=== PATIENT | male | born 1960 | race Caucasian/White ===

== ENCOUNTER 2021-08-27 08:55 | Emergency (ER) | payer OTHER, SELFPAY ==
[2021-08-27] VITALS (17 sets, daily range): BP systolic 129–210; BP diastolic 88–136; PULSE 58–81; RESP 20; TEMP 36.9–37.1; O2SAT 92–98
--- NOTE | ~2021-08-27 | CT_ITS ---
EXAMINATION: CT brain wo con INDICATION: Headache COMPARISON: None TECHNIQUE: Standard unenhanced head CT. The dose-length product (DLP) was 681.00 mGy-cm. The mA was a djusted according to patient size. Iterative reconstruction technique was employed. FINDINGS: There is hypoattenuation in the right frontal lobe and right periventricular white matter w ith associated loss of ochoa-white differentiation. Subtle low attenuation is also seen in the left fr ontal lobe adjacent to the anterior horn of the lateral ventricle. There is no intracranial hemorrhag e or abnormal mass lesion. The ventricles are normal. There is no abnormal mass effect or midline reta ft. The basal cisterns are patent. The orbits are normal. There is a polyp or mucous retention cyst right maxillary sinus. IMPRESSION: 1. Areas of hypoattenuation in the frontal lobes suggestive of acute to subacute infarct. Reviewed, dictated and finalized at location A. IMPRESSION: 1. Areas of hypoattenuation in the frontal lobes suggestive of acute to subacut e infarct.
--- NOTE | 2021-08-27 09:02 | ECG_ITS ---
Measurements Intervals [place] Rate: 86 P: 17 IA: 184 QRS: -46 QRSD: 94 T: 4 QT: 367 QTc: 441 Interpretive Statements SINUS RHYTHM LEFT ANTERIOR FASCICULAR BLOCK [QRS AXIS <= -45, QR IN I, RS IN II] VOLTAGE CRITERIA FOR LVH [MEETS CRITERIA IN ONE OF: R(aVL), S(V1), R(V5), R(V5/V6)+S(V1)] NONSPECIFIC T-WAVE ABNORMALITY NO PREVIOUS ECG AVAILABLE FOR COMPARISON Electronically Signed On 08-27-2021 19:27:23 CDT by Rosa Melton M.D.
[2021-08-27 09:12] LABS: Basophils Absolute Auto 0.06 K/mm3 (0.00-0.10); Basophils Percent Auto 0.5 % (0.0-1.0); Eosinophils Absolute Auto 0.02 K/mm3 (0.02-0.50); Eosinophils Percent Auto 0.2 % (1.0-6.0); Hematocrit 55.9 % (40.0-54.0); Hemoglobin 19.7 g/dL (14.0-18.0); Immature Granulocyte Absolute 0.04 K/mm3 (0.00-0.00); Immature Granulocyte Percent A 0.3 % (0.0-0.0); Lymphocytes Absolute Auto 2.59 K/mm3 (1.10-4.50); Lymphocytes Percent Auto 21.6 % (18.0-42.0); Mean Corpuscular HGB Conc 35.2 g/dL (32.0-36.0); Mean Corpuscular Hemoglobin 30.3 pg (27.0-31.0); Mean Platelet Volume 11.9 fl (8.7-11.0); Monocytes Absolute Auto 0.97 K/mm3 (0.10-0.90); Monocytes Percent Auto 8.1 % (2.0-11.0); Neutrophils Absolute Auto 8.3 K/mm3 (1.7-7.2); Neutrophils Percent Auto 69.3 % (50.0-70.0); Platelet Count Result 121 K/mm3 (150-420); Red Cell Distribution Width 11.6 % (11.6-14.4)
[2021-08-27] MEDS: METOPROLOL TARTRATE INJ 5 MG/5 ML VIAL 2.5 MG IV PUSH ×3 (09:23→11:21)
[2021-08-27] MEDS: SODIUM CHLORIDE 0.9% IV 500 ML 999 ML IV CONT ×3 (09:24→15:52)
[2021-08-27 09:27] LABS: Glucose Point of Care 263 mg/dl (65-105)
[2021-08-27 09:28] LABS: Lactic Acid Reflex 2.6 mmol/L (0.4-2.0)
[2021-08-27 09:31] LABS: Alanine Aminotransferase 34 U/L (16-63); Albumin Level 3.7 g/dL (3.4-5.0); Alkaline Phosphatase 64 U/L (46-116); Anion Gap 9 mmol/L (8-16); Aspartate Amino Transferase 25 U/L (15-37); Bilirubin,Total 1.2 mg/dL (0.00-1.00); Blood Urea Nitrogen 21 mg/dL (7-18); Calcium 9.3 mg/dL (8.5-10.1); Carbon Dioxide 32 mmol/L (21-32); Chloride 95 mmol/L (98-108); Estimated Glomerular Filt Rate 51; Glucose 318 mg/dL (70-99); Osmolality Calculated 297 mOsm/kg (285-295); Potassium 3.4 mmol/L (3.5-5.1); Salicylate 1.1 mg/dL (2.8-20.0); Sodium 136 mmol/L (136-145); Thyroid Stimulating Hormone 2.12 uIU/mL (0.36-3.74); Total Protein 7.9 g/dL (6.4-8.2); Troponin I 46.2 ng/L (0.00-60.4)
[2021-08-27 09:32] LABS: Acetaminophen < 2 ug/mL (10-30); Ethanol < 3 mg/dL (0-6)
--- NOTE | 2021-08-27 10:00 | ED.NEUROSD ---
HPI - Neuro Symptoms/Deficit General Chief Complaint: Suspected CVA Stated Complaint: stroke symptoms Time Seen by Provider: 08/27/21 08:59 Source: patient, family and RN notes reviewed Mode of arrival: ambulatory Limitations: altered mental status History of Present Illness HPI Narrative: Severe MORRELL with vomiting x 28 hrs ago. Also pt has had difficulty understanding Onset (ago): day(s) (28) Last Observed Normal: 06:00 Timing confirmed by: spouse Location: altered and other (not following commands.) History of same: No Severity: moderate Relieving factors: none Exacerbating factors: none Context: gradual onset On Anticoagulants: No Associated symptoms: confusion, headaches and nausea/vomiting Treatments Prior to Arrival: none Related Data Home Medications Medication Instructions Recorded Confirmed No Home Medications 08/27/21 08/27/21 Allergies Allergy/AdvReac Type Severity Reaction Status Date / Time erythromycin base AdvReac Severe NAUSEA, Verified 03/15/20 14:56 SEVERE STOMACH PAIN Review of Systems Review of Systems: All systems reviewed & are unremarkable except as noted in HPI and below Constitutional: Constitutional: Reports no additional constitutional complaints Eyes: Eyes: Reports no additional eye complaints ENT: Reports system reviewed and no additional complaints, except as documented Cardiovascular: Cardiovascular: Reports no additional cardiovascular complaints Respiratory: Respiratory: Reports no additional respiratory complaints Gastrointestinal: Gastrointestinal: Reports no additional gastrointestinal complaints Musculoskeletal: Musculoskeletal: Reports no additional musculoskeletal complaints Integumentary/Breasts: Skin/Breast: Reports system reviewed and no additional complaints, except as docu Neurologic: Reports system reviewed and no additional complaints, except as documented Psychiatric: Psychiatric: Reports no additional psychiatric complaints Endocrine: Endocrine: Reports no additional endocrine complaints Hematologic/Lymphatic: Hematologic/Lymphatic: Reports no additional hematologic/lymphatic complaints Allergic/Immunologic: Allergic/Immunologic: Reports no additional allergic/immunologic complaints [facility] Past Medical History Medical History Polycythemia Stroke Type 2 diabetes mellitus without complications Family History Family History Mother Patient's mother is in good health Father Patient's father is in good health Sibling Patient's sister is in good health Social History Social History Smoking status: Never smoker Second hand tobacco smoke exposure: No Alcohol intake: current Exam Const: General: healthy appearing and no acute distress Nutritional Appearance: well nourished Orientation/consciousness: patient oriented x3 Limitations: no limitations HENMT: Head: normal to inspection Ears: external ears normal, TM's normal bilaterally and EAC's normal General nose exam: Normal external nose present and Normal nares present Face and sinus: normal facial exam and sinuses nontender Mouth: Yes Normal oral and palatal mucosa present and Yes moist mucous membranes Teeth and gingiva: dentition normal Throat: posterior oropharynx normal Eyes: Conjunctivae: conjunctivae normal Pupils: Equal, round and reactive pupils present EOM: EOMs intact bilaterally Neck: Neck: normal visual inspection, no lymphadenopathy and no meningeal signs Chest: Chest palpation & inspection: normal inspection of the chest Resp: Effort & Inspection: normal respiratory effort Auscultation: clear to auscultation bilaterally Cardio: Rate: regular rate Rhythm: regular rhythm GI: GI Palp: Yes Soft to palpation and No Tenderness to palpation present (GI) Auscultation: normal bowel so
[2021-08-27] MEDS: ONDANSETRON INJ 4 MG/2 ML VIAL IV PUSH ×2 (10:15→15:52)
[2021-08-27] MEDS: MORPHINE SULFATE (*CRX) 2 MG/ML INJ IV PUSH (10:19)
[2021-08-27 10:23] LABS: SARS-CoV-2 RNA PCR Negative (Negative)
[2021-08-27] MEDS: ASPIRIN 325 MG ENTERIC TABLET PO (10:38)
[2021-08-27 10:55] LABS: Add Urine Microscopic? YES; Appearance Urine Clear (Clear); Bilirubin Urine Negative (Negative); Blood Urine 2+ (Negative); Color Urine Yellow (Yellow); Glucose Urine UA 3+ (Negative); Ketones Urine Trace (Negative); Leukocyte Esterase Ur Negative (Negative); Nitrate Urine Negative (Negative); Protein Urine 3+ (Negative); Specific Grav Ur >= 1.030 (1.010-1.020); Urobilinogen Urine 0.2 mg/dL (0.2-1.0)
[2021-08-27 10:59] LABS: Bacteria Urine 1+ /hpf; Mucus Urine Few /lpf; Squamous Epithelial Cell Urine Rare /hpf (Few); WBC Urine None seen /hpf (0-3)
[2021-08-27 11:02] LABS: Amphetamine Screen Urine Negative (Negative); Barbiturate Screen Urine Negative (Negative); Benzodiazepines Screen Urine Negative (Negative); Cannabinoid Screen Urine Negative (Negative); Cocaine Screen Urine Negative (Negative); Methadone Screen Urine Negative (Negative); Opiate Screen Urine Positive (Negative); Phencyclidine Screen Urine Negative (Negative)
[2021-08-27 12:08] LABS: Reflex Lactic Acid Yes or No Add Lactic
[2021-08-27] MEDS: cloNIDine HCL 0.2 MG TABLET PO (12:42)
[2021-08-27] MEDS: carvediloL 12.5 MG TABLET 25 MG PO (14:53)
--- NOTE | 2021-08-27 15:41 | ECG_ITS ---
Measurements Intervals [place] Rate: 54 P: -4 SC: 190 QRS: -41 QRSD: 102 T: 187 QT: 542 QTc: 518 Interpretive Statements SINUS BRADYCARDIA LEFT AXIS DEVIATION [QRS AXIS < -30] LEFT VENTRICULAR HYPERTROPHY AND ST-T CHANGE COMPARED TO ECG 08/27/2021 09:19:57 SINUS BRADYCARDIA NOW PRESENT LEFT-AXIS DEVIATION NOW PRESENT LATERAL T-WAVE INVERSION IS NEW, COMPARED TO THE PRIOR TRACING, AND MAY REPRESENT ISCHEMIA Electronically Signed On 08-27-2021 19:28:28 CDT by Rosa Melton M.D.
[2021-08-27] MEDS: SODIUM CHLORIDE 0.9% IV 500 ML 999 ML (15:54)
--- NOTE | 2021-08-27 16:25 | PC.NURSE ---
1527 blood pressure drop to 88/67, hr 50. pt pale, diaphoretic, confusion, slurred speech, unable to write name as previously checked. dr red in room with pt. call to [facility] at 1530 , dr red spoke with dr ARTEAGA, will request icu bed placement due to change in condition. pt confused of who family members are. awaiting call back from neri. 1620 call from neri spoke with [facility], bed assignment received.
--- NOTE | 2021-08-27 16:34 | PC.NURSE ---
pt alert to daughter name who is standing at bedside, writing name more clearly but not back to normal. skin is pink and dry. Call to [facility] for transport. awaiting response.
--- NOTE | 2021-08-27 17:33 | PC.NURSE ---
1700 [facility] here, report to nicolas . pt loaded to ems cot, speech clear. alert and oriented to family members. able to move self to ems cot. denies pain, no nausea. no vomiting while in er.
== END 2021-08-27 17:10 | disposition short-term general hospital (02) ==
PROVIDERS: Emergency Provider Emergency Medicine; PCP Internal Medicine
DX: I63.89 Other cerebral infarction (principal); Z20.822 Contact with and (suspected) exposure to COVID-19; E11.9 Type 2 diabetes mellitus without complications
CPT/HCPCS: 36415; 70450; 80053; 80307; 81001; 82948; 83605; 84443; 84484; 85025; 93005; 96361; 96374; 96375; 96376; 99285; A9270; C9803; J2270; J2405; J7040; U0003; U0005

== ENCOUNTER 2021-09-11 09:53 | Outpatient (RCR) | payer OTHER, SELFPAY ==
--- NOTE | 2021-09-11 11:36 | OTOPEVAL ---
Thank you for referring Shad Juarez to [facility].? The patient is scheduled to be seen for therapy? ____x/week for ___ weeks. Please review, sign, date and return this plan of care AZALEA. I agree with and certify that the following plan of care is medically necessary. Referring Physician Date Admitting Provider: Attending Provider: Noel Dawkins DO Referring Provider: *OT Outpatient Evaluation Start: 09/11/21 08:58 Freq: Status: Active Protocol: Document 09/11/21 10:55 [facility] [place] (Rec: 09/11/21 11:36 [facility] [place] [id number]) Therapy Assessment Status Assessment Status Assessment Status Evaluation Outpatient Past Medical History Neurological History Hx Migraine Yes Cardiovascular History Hx Hypercholesterolemia Yes Hx Hypertension Yes Endocrine History Hx Diabetes Yes Evaluation Information Problem Onset 08/27/21 Cause CVA Subjective Information Patient transitions from ST Query Text:As Reported By Patient/ evaluation to OT. Patient Family reports that he had a CVA on and was in the hospital until 08/31/21. Patient reports that things are going well. Patient states that his biggest concern is his frustration with cognitive stuff, specifically using computers. Patient states that he is currently independent with all his self care and IADLs. Patient feels that his only concern at this time is his cognition and speech. 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
--- NOTE | 2021-09-11 13:17 | STOPEVAL ---
Addendum entered by ANITA Noyola 09/11/21 13:21: Frequency 1x/week for 10 sessions. Original Note: Thank you for referring Shad Juarez to [facility].? The patient is scheduled to be seen for therapy? ____x/week for ___ weeks. Please review, sign, date and return this plan of care AZALEA. I agree with and certify that the following plan of care is medically necessary. Referring Physician Date Admitting Provider: Attending Provider: Noel Dawkins DO Referring Provider: [facility] Outpatient Evaluation Start: 09/11/21 12:21 Freq: Status: Active Protocol: Document 09/11/21 10:00 [facility] (Rec: 09/11/21 12:59 [facility] [id number]) Therapy Assessment Status Assessment Status Assessment Status Evaluation Patient was referred for an ST evaluation due to new concerns regarding cognitive- communication deficits due to recent CVA. Outpatient Past Medical History Past Medical History Source of Past Medical History Patient,Family/Significant Other BP 204/105 during evaluation. Spoke with primary doctor to see patient soon in the office for potential changes in medication. Education with patient regarding symptoms to look out for and if noted to go to the ER immediately. Neurological History Hx Cerebrovascular Accident (CVA) Yes: 08-26-21 Hx Migraine Yes Cardiovascular History Hx Hypercholesterolemia Yes Hx Hypertension Yes Respiratory History Hx Respiratory Disorders No Significant History Gastrointestinal History Hx Gastrointestinal Disorders No Significant History Genitourinary History Hx Genitourinary Disorders No Significant History Musculoskeletal History Hx Musculoskeletal Disorders No Significant History Hematological History Hx Hematological Disorders No Significant History Endocrine History Hx Diabetes Yes HEENT History Hx HEENT Disorders No Significant History Integumentary History Hx Skin Disorders No Significant History Reproductive History Hx Reproductive Disorders No Significant History Psychosocial History Hx Psychiatric Disorders No Significant History Pain History History of Any Previous or Ongoing No Significant History Instance of Pain Anesthesia History Hx Anesthesia Reactions No Significant History Pain Assessment Timing of Pain Assessment Timing of Pain Assessment Assessment Self Report Self Report Pain Level 0 Pain Score Pain Score 0: Self Report Language Evaluation Auditory Comprehension Body Part Identification (% Accuracy (0- 100 100)) Simple Yes/No Questions (% Accuracy (0- 100 100)) Moderate Yes/No Questions (% Accuracy (0 100 -100)) Complex Yes/No Questions (% Accuracy (0- 80 100)) Auditory Comprehe
--- NOTE | 2021-10-19 15:03 | PCSTNOTE ---
Patient was called & cancelled scheduled appointment on October 12 due to [employer] being out sick.
--- NOTE | 2021-10-30 15:47 | PCSTNOTE ---
Admitting Provider: Attending Provider: Noel Dawkins DO Patient:Shad Juarez Date of :1960 Patient has not returned for any further treatments since 10/03/2021, therefore he will be discharged at this time. Patient?s initial visit was on 09/11/2021 and he had a total of 2 visits. The goals have been met. The patient has met goals for short term memory, complex problem solving, functional mathematical tasks, and verbal expression skills therefore he will be discharged from at this time. Patient is happy with progress that has been made and is ready to be discharged. Thank you for referring this patient to [facility]. Please review, sign, date and return this discharge summary [facility]. I have been updated about the patient's current status and I agree with discharge from the above service at this time. Referring Physician Date
== END 2021-12-10 23:59 | disposition home or self-care (01) ==
LOC: CHSOT 09:53
PROVIDERS: Visit Provider Internal Medicine
DX: I69.391 Dysphagia following cerebral infarction (principal)
CPT/HCPCS: 92507; 92523; 97165

== ENCOUNTER 2021-09-11 13:25 | Emergency (ER) | payer OTHER, SELFPAY ==
[2021-09-11 13:40] LABS: Glucose Point of Care 99 mg/dl (65-105)
--- NOTE | 2021-09-11 13:40 | ED.GENADULT ---
HPI - General Adult General Chief complaint: Recheck/Abnormal Lab/Rx Stated complaint: High blood pressure Time Seen by Provider: 09/11/21 13:40 Source: patient Mode of arrival: ambulatory Limitations: no limitations History of Present Illness HPI narrative: For the last 3 days patient has been having some elevated blood pressure. He is currently on lisinopril 20 mg, Coreg 25 mg b.i.d.. His blood pressures been as high as 192 over 113. He has been having some ringing in his ears. He had a stroke 2 weeks ago and has had some mild cognitive impairment that otherwise he is back to baseline. Onset (ago): day(s) (3) Severity: moderate Relieving factors: none Exacerbating factors: none Associated symptoms: denies other symptoms Treatments prior to arrival: none Related Data Home Medications Medication Instructions Recorded Confirmed aspirin 325 mg tablet 1 tablet PO DAILY 09/11/21 09/11/21 atorvastatin 80 mg tablet 1 tablet PO DAILY 09/11/21 09/11/21 carvedilol 25 mg tablet 2 tablet PO DAILY 09/11/21 09/11/21 insulin glargine 100 unit/mL (3 See Rx Instructions .Route .COMPLEX 09/11/21 09/11/21 mL) subcutaneous pen (Lantus Solostar U-100 Insulin) linagliptin 5 mg tablet (Tradjenta) See Rx Instructions .Route .COMPLEX 09/11/21 09/11/21 lisinopril 20 mg tablet 1 tablet PO DAILY 09/11/21 09/11/21 metformin 500 mg tablet 1 tablet PO TID 09/11/21 09/11/21 Allergies Allergy/AdvReac Type Severity Reaction Status Date / Time erythromycin base AdvReac Severe NAUSEA, Verified 09/11/21 13:52 SEVERE STOMACH PAIN Review of Systems Review of Systems: All systems reviewed & are unremarkable except as noted in HPI and below PMFSH Past Medical History Medical History Polycythemia Stroke Type 2 diabetes mellitus without complications Family History Family History Mother Patient's mother is in good health Father Patient's father is in good health Sibling Patient's sister is in good health Social History Social History Smoking status: Never smoker Second hand tobacco smoke exposure: No Alcohol intake: current Exam Const: General: healthy appearing, no acute distress and alert Nutritional Appearance: well nourished Orientation/consciousness: patient oriented x3 Limitations: no limitations HENMT: Head: normal to inspection Ears: external ears normal Face and sinus: normal facial exam Eyes: Conjunctivae: conjunctivae normal Pupils: Equal, round and reactive pupils present EOM: EOMs intact bilaterally Neck: Neck: normal visual inspection Resp: Effort & Inspection: normal respiratory effort Auscultation: clear to auscultation bilaterally Cardio: Rate: regular rate Rhythm: regular rhythm GI: GI Palp: Yes Soft to palpation and No Tenderness to palpation present (GI) Auscultation: normal bowel sounds Back/Spine/Pelvis: Cervical Spine: cervical ROM normal Thoracic/Lumbar Spine: Thoracic/lumbar spine scar(s) Skin: General skin exam: normal color Rashes: no rashes Neuro: General: patient oriented x3, moves all extremities, no focal motor deficits and CN's II-XI intact bilaterally Speech: normal speech Gait exam (Neuro): Normal gait present Extrem: General: normal to inspection and no clubbing, cyanosis or edema Psych: Mental Status: mental status grossly normal Affect: normal affect Attitude: cooperative Course Course Emergency Course: Patient given clonidine 0.2 mg p.o. with little response. Then given hydralazine 25 mg p.o. with improvement in blood pressure. Vital Signs Vital signs: Vital Signs Temperature 36.2 C L 09/11/21 13:48 Pulse Rate 58 L 09/11/21 13:48 Respiratory Rate 16 09/11/21 13:48 Blood Pressure 181/100 H 09/11/21 13:48 Pulse Oximetry 98 09/11/21 13:48 Oxygen Delivery Room Air 08/24
[2021-09-11 13:48] VITALS: BP 181/100; PULSE 58; RESP 16; TEMP 36.2; O2SAT 98
[2021-09-11] MEDS: cloNIDine HCL 0.1 MG TABLET 0.2 MG PO (14:54)
--- NOTE | 2021-09-11 15:08 | PC.NURSE ---
patient ambulatory to bathroom with steady gait.
[2021-09-11] MEDS: hydrALAZINE HCL 25 MG TABLET PO (15:42)
--- NOTE | 2021-09-11 15:42 | PC.NURSE ---
erp is aware patient's heart rate is in the low 50's high 40's. states that hydralazine is still okay to give.
[2021-09-11 16:40] VITALS: BP 174/106; PULSE 57; RESP 16; TEMP 36.2; O2SAT 95
== END 2021-09-11 16:42 | disposition home or self-care (01) ==
PROVIDERS: Emergency Provider Emergency Medicine; PCP Internal Medicine
DX: I16.0 Hypertensive urgency (principal); E11.9 Type 2 diabetes mellitus without complications
CPT/HCPCS: 82948; 99283; A9270

== ENCOUNTER 2021-09-24 19:57 | Emergency (ER) | payer OTHER, SELFPAY ==
[2021-09-24] VITALS (13 sets, daily range): BP systolic 187–214; BP diastolic 101–120; PULSE 61–69; RESP 6–18; TEMP 36.6; O2SAT 95–98
--- NOTE | ~2021-09-24 | CT_ITS ---
EXAMINATION: CT brain wo con DATE: 09/24/2021 20:10 INDICATION: slurred speech, possible stroke/HX OF STROKE . TECHNIQUE: Computed tomography (CT) of the head was performed without intravenous contrast. The mA wa s adjusted according to patient size. Iterative reconstruction technique was employed. The dose-lengt h product was 681.00 mGy-cm. COMPARISON: 08/27/2021 FINDINGS: No acute intracranial hemorrhage or extra-axial fluid collection. No hydrocephalus, mass, or herniation. Increased size of the right frontal, periventricular and centrum semiovale cortical hypodensity which displays loss of ochoa-white junction. Stable likely chronic left frontal infarct change. Unremarkable dural venous sinus attenuation. No acute osseous abnormality. Retention cyst or polyp in the right maxillary sinus, otherwise the aerated spaces are clear. IMPRESSION: Findings concerning for progressive infarction in the right frontal lobe, periventricular white matte r, and centrum semiovale. Results reported telephonically to Dr. Sr by Dr. Armstrong at 8:30 PM on 09/24/2021. Reviewed, dictated and finalized at location K. IMPRESSION: Findings concerning for progressive infarction in the right frontal lobe, periv entricular white matter, and centrum semiovale. Results reported telephonically to Dr. Sr by Dr. Armstrong at 8:30 PM on 09/24/2021.
--- NOTE | 2021-09-24 20:07 | ECG_ITS ---
Measurements Intervals [place] Rate: 67 P: [place]: 0 QRS: -38 QRSD: 86 T: 0 QT: 400 QTc: 425 Interpretive Statements SINUS RHYTHM LEFT AXIS DEVIATION BORDERLINE AV CONDUCTION DELAY LEFT VENTRICULAR HYPERTROPHY POOR R WAVE PROGRESSION, ANTERIOR LEADS BORDERLINE T WAVE ABNORMALITY- DIFFUSE LEADS BASELINE ARTIFACT- I, III, AVR, AVL, AVF, V1-V2, V5-V6 ABNORMAL ECG Electronically Signed On 09-24-2021 21:11:36 CDT by Zak Jensen D.O.
--- NOTE | 2021-09-24 20:18 | ED.GENADULT ---
HPI - General Adult General Chief complaint: Neuro Symptoms/Deficit Stated complaint: slurred speach History of Present Illness HPI narrative: Shad is a 61M with a PMH of CVA less than amonth ago, polycythemia, DMII, HLD, HTN and obesity that presented to the ED with concerns of CVA. Less than an hour before coming to the ED (around 1900) he started having some slurred speech and dizziness then came to the ED. No CP, fevers, chills, SOB or syncope reported. Related Data Home Medications Medication Instructions Recorded Confirmed aspirin 325 mg tablet 1 tablet PO DAILY 09/11/21 09/24/21 insulin glargine 100 unit/mL (3 See Rx Instructions .Route .COMPLEX 09/11/21 09/24/21 mL) subcutaneous pen (Lantus Solostar U-100 Insulin) linagliptin 5 mg tablet (Tradjenta) See Rx Instructions .Route .COMPLEX 09/11/21 09/24/21 cyanocobalamin (vitamin B-12) 1,000 mcg PO DAILY 09/13/21 09/24/21 1,000 mcg capsule Allergies Allergy/AdvReac Type Severity Reaction Status Date / Time erythromycin base AdvReac Severe NAUSEA, Verified 09/13/21 14:09 SEVERE STOMACH PAIN Review of Systems Constitutional: Constitutional: Reports no additional constitutional complaints Eyes: Eyes: Reports no additional eye complaints ENT: Reports system reviewed and no additional complaints, except as documented Cardiovascular: Cardiovascular: Reports no additional cardiovascular complaints Respiratory: Respiratory: Reports no additional respiratory complaints Gastrointestinal: Gastrointestinal: Reports no additional gastrointestinal complaints Genitourinary: Genitourinary: Reports no additional male genitourinary complaints Musculoskeletal: Musculoskeletal: Reports no additional musculoskeletal complaints Integumentary/Breasts: Skin/Breast: Reports system reviewed and no additional complaints, except as docu Neurologic: Reports system reviewed and no additional complaints, except as documented Psychiatric: Psychiatric: Reports no additional psychiatric complaints Endocrine: Endocrine: Reports no additional endocrine complaints Hematologic/Lymphatic: Hematologic/Lymphatic: Reports no additional hematologic/lymphatic complaints [facility] Past Medical History Medical History Polycythemia Stroke Type 2 diabetes mellitus without complications Family History Family History Mother Patient's mother is in good health Father Patient's father is in good health Sibling Patient's sister is in good health Social History Social History Smoking status: Never smoker Second hand tobacco smoke exposure: No Alcohol intake: current Course Course Emergency Course: Glucose was 127. Ordered CT head and labs. Not a TPA candidate d/t CVA last month. EKG showed supraventricular rhythm with a rate of 67, left axis deviation but no ST elevation/depression EXAMINATION: CT brain wo con DATE: 09/24/2021 20:10 INDICATION: slurred speech, possible stroke/HX OF STROKE . TECHNIQUE: Computed tomography (CT) of the head was performed without intravenous contrast. The mA was adjusted according to patient size. Iterative reconstruction technique was employed. The dose-length product was 681.00 mGy-cm. COMPARISON: 08/27/2021 FINDINGS: No acute intracranial hemorrhage or extra-axial fluid collection. No hydrocephalus, mass, or herniation. Increased size of the right frontal, periventricular and centrum semiovale cortical hypodensity which displays loss of ochoa-white junction. Stable likely chronic left frontal infarct change. Unremarkable dural venous sinus attenuation. No acute osseous abnormality. Retention cyst or polyp in the right maxillary sinus, otherwise the aerated spaces are clear. IMPRESSION:? Findings concerning for progressive infarction in the right frontal lobe, perive
[2021-09-24 20:25] LABS: Basophils Absolute Auto 0.05 K/mm3 (0.00-0.10); Basophils Percent Auto 0.6 % (0.0-1.0); Eosinophils Absolute Auto 0.16 K/mm3 (0.02-0.50); Eosinophils Percent Auto 1.9 % (1.0-6.0); Hematocrit 46.4 % (40.0-54.0); Hemoglobin 16.3 g/dL (14.0-18.0); Immature Granulocyte Absolute 0.02 K/mm3 (0.00-0.00); Immature Granulocyte Percent A 0.2 % (0.0-0.0); Lymphocytes Absolute Auto 2.32 K/mm3 (1.10-4.50); Lymphocytes Percent Auto 27.8 % (18.0-42.0); Mean Corpuscular HGB Conc 35.1 g/dL (32.0-36.0); Mean Corpuscular Hemoglobin 30.2 pg (27.0-31.0); Mean Corpuscular Volume 86.1 fL (78.0-102.0); Mean Platelet Volume 12.3 fl (8.7-11.0); Monocytes Absolute Auto 0.82 K/mm3 (0.10-0.90); Monocytes Percent Auto 9.8 % (2.0-11.0); Neutrophils Percent Auto 59.7 % (50.0-70.0); Platelet Count Result 99 K/mm3 (150-420); Red Blood Count 5.39 M/mm3 (4.70-6.10); Red Cell Distribution Width 11.7 % (11.6-14.4); White Blood Count 8.4 K/mm3 (4.8-10.8)
--- NOTE | 2021-09-24 20:40 | PC.NURSE ---
Call placed by Dr Sr to [facility] to speak c oncall emergency room physician assistant romero Goddard radiology called back c results. Pt informed of test results and need for transfer to stroke center for further tx. Awaiting call back from neuro emergency room physician assistant at [facility].
[2021-09-24 20:42] LABS: Alanine Aminotransferase 26 U/L (16-63); Albumin Level 3.8 g/dL (3.4-5.0); Alkaline Phosphatase 57 U/L (46-116); Anion Gap 10 mmol/L (8-16); Aspartate Amino Transferase 14 U/L (15-37); Bilirubin,Total 0.6 mg/dL (0.00-1.00); Blood Urea Nitrogen 23 mg/dL (7-18); Calcium 8.8 mg/dL (8.5-10.1); Carbon Dioxide 28 mmol/L (21-32); Chloride 101 mmol/L (98-108); Estimated CRCL calculation 54 ml/min; Estimated Glomerular Filt Rate 52; Glucose 131 mg/dL (70-99); Osmolality Calculated 293 mOsm/kg (285-295); Potassium 3.5 mmol/L (3.5-5.1); Sodium 139 mmol/L (136-145); Total Protein 7.1 g/dL (6.4-8.2); Troponin I 15.8 ng/L (0.00-60.4)
[2021-09-24 20:49] LABS: Ethanol < 3 mg/dL (0-6)
--- NOTE | 2021-09-24 20:59 | PC.NURSE ---
Pt remains stable at this time, no changes in condition, ERP spoke to Dr Avilez at [facility], he accepts for transfer and will go by ground transfer crew.
--- NOTE | 2021-09-24 21:02 | PC.NURSE ---
Awaiting hospitalist at [facility] to call back for admission and bed placement.
--- NOTE | 2021-09-24 21:11 | PC.NURSE ---
Dr Gresham, hospitalist at [facility] accepts for pt transfer. Pt and informed on POC.
[2021-09-24 21:29] LABS: Add Urine Microscopic? NO; Appearance Urine Clear (Clear); Bilirubin Urine Negative (Negative); Blood Urine Negative (Negative); Color Urine Yellow (Yellow); Glucose Urine UA Negative (Negative); Ketones Urine Negative (Negative); Leukocyte Esterase Ur Negative (Negative); Nitrate Urine Negative (Negative); Protein Urine Negative (Negative); Specific Grav Ur <= 1.005 (1.010-1.020); Urobilinogen Urine 0.2 mg/dL (0.2-1.0)
[2021-09-24 21:36] LABS: Amphetamine Screen Urine Negative (Negative); Barbiturate Screen Urine Negative (Negative); Benzodiazepines Screen Urine Negative (Negative); Cannabinoid Screen Urine Negative (Negative); Cocaine Screen Urine Negative (Negative); Methadone Screen Urine Negative (Negative); Opiate Screen Urine Negative (Negative); Phencyclidine Screen Urine Negative (Negative)
--- NOTE | 2021-09-24 21:41 | PC.NURSE ---
Call back from [facility], report given to Lazaro at transfer center, bed assignment will be made on arrival. Pt informed on transfer, VSS. Call paged to [facility] for pt transfer.
--- NOTE | 2021-09-24 22:05 | PC.NURSE ---
Pt report given to [facility], pt loaded for transfer s difficulty, monitor shows SR, VSS, aware of elevated BP. Call back placed to [facility] on pt departure.
== END 2021-09-24 22:05 | disposition short-term general hospital (02) ==
PROVIDERS: Emergency Provider Family Medicine; PCP Internal Medicine
DX: I63.9 Cerebral infarction, unspecified (principal); E11.9 Type 2 diabetes mellitus without complications; Z79.899 Other long term (current) drug therapy
CPT/HCPCS: 36415; 70450; 80053; 80307; 81003; 84484; 85025; 85055; 93005; 99285

== ENCOUNTER 2021-09-29 02:23 | Emergency (ER) | payer OTHER, SELFPAY ==
[2021-09-29] VITALS (19 sets, daily range): BP systolic 176–219; BP diastolic 104–124; PULSE 62–88; RESP 15–27; TEMP 36.4; O2SAT 92–98
--- NOTE | ~2021-09-29 | CT_ITS ---
EXAMINATION: CT abdomen pelvis wo con DATE: 09/29/2021 03:10 INDICATION: Left flank and left lower quadrant pain TECHNIQUE: Computed tomography (CT) of the abdomen and pelvis was performed without intravenous contr ast. The dose-length product was 962.59 mGy-cm. Automated exposure control and iterative reconstructi on technique were employed. COMPARISON: No prior studies for comparison. . FINDINGS: Lung bases are unremarkable. Heart size normal. No significant pleural or pericardial effus ion. The liver, spleen, pancreas, adrenal glands and right kidney are unremarkable. There is a 7 mm n onobstructing left renal stone. There is a 6 cm hyperdense lesion inferior pole of the left kidney. T here is surrounding fluid and phlegmonous change surrounding the lower pole, suspicious for hemorrhag e or infection. There is a smaller 2.5 cm hyperdense lesion mid posterior margin of the left kidney, likely hyperdense cyst. The liver, spleen, pancreas, and adrenal glands are unremarkable. Heart size normal. No free air or f ree fluid. There is osteoarthritis of the hips. There is mild lower thoracic and lumbar spondylosis. No acute osseous abnormality. IMPRESSION: 1. 6 cm hyperdense mass inferior pole of the left kidney. Differential diagnosis includes complicated hyperdense cyst and renal cell carcinoma. Correlation with MRI with contrast recommended. There is f luid and phlegmonous change surrounding this mass inferior to the left kidney which may represent hem orrhage or sequela of infection. 2: Hyperdense mass mid posterior margin of the left kidney measuring 2.5 cm, most likely hyperdense c ysts. 3: Nonobstructing left nephrolithiasis. Reviewed, dictated and finalized at [facility]. IMPRESSION: 1. 6 cm hyperdense mass inferior pole of the left kidney. Differential diagnosi s includes complicated hyperdense cyst and renal cell carcinoma. Correlation wi th MRI with contrast recommended. There is fluid and phlegmonous change surroun ding this mass inferior to the left kidney which may represent hemorrhage or se quela of infection. 2: Hyperdense mass mid posterior margin of the left kidney measuring 2.5 cm, mo st likely hyperdense cysts. 3: Nonobstructing left nephrolithiasis.
--- NOTE | 2021-09-29 02:47 | ED.GENADULT ---
HPI - General Adult General Chief complaint: Abdominal Pain Stated complaint: n/v, abdominal pain, testicular pain Time Seen by Provider: 09/29/21 02:41 Source: RN notes reviewed History of Present Illness HPI narrative: Patient presents emergency department from home for abdominal pain. Patient states symptoms began this evening with pain in the lower back to go around the left lower abdomen pain is described as sharp and stabbing and is now radiating down into the left testicle. States is associated with nausea and vomiting states he said no fevers or chills chest pain shortness of breath diarrhea or any other symptoms. Patient states he did take Tylenol at home with minimal relief denies any previous history of kidney stones Related Data Home Medications Medication Instructions Recorded Confirmed aspirin 325 mg tablet 1 tablet PO DAILY 09/11/21 09/29/21 insulin glargine 100 unit/mL (3 See Rx Instructions .Route .COMPLEX 09/11/21 09/29/21 mL) subcutaneous pen (Lantus Solostar U-100 Insulin) linagliptin 5 mg tablet (Tradjenta) See Rx Instructions .Route .COMPLEX 09/11/21 09/29/21 cyanocobalamin (vitamin B-12) 1,000 mcg PO DAILY 09/13/21 09/29/21 1,000 mcg capsule ticagrelor 90 mg tablet (Brilinta) 90 mg PO BID 09/29/21 09/29/21 Allergies Allergy/AdvReac Type Severity Reaction Status Date / Time erythromycin base AdvReac Severe NAUSEA, Verified 09/29/21 02:29 SEVERE STOMACH PAIN Review of Systems Review of Systems: Gen.: Denies fevers or chills ENT: Denies congestion Respiratory: Denies shortness of breath or cough CV: Denies chest pain or palpitations GI: See HPI denies burning, urgency, frequency or hematuria Musculoskeletal: Denies back pain or muscle pain Neuro: Denies numbness, tingling, weakness or focal weakness Skin: Denies rash Except as documented, all other systems reviewed and negative [facility] Past Medical History Medical History Polycythemia Stroke Type 2 diabetes mellitus without complications Family History Family History Mother Patient's mother is in good health Father Patient's father is in good health Sibling Patient's sister is in good health Social History Social History Smoking status: Never smoker Second hand tobacco smoke exposure: No Alcohol intake: current Exam Narrative: APPEARANCE: No acute distress, nontoxic, resting in bed HEENT: Normocephalic, atraumatic, OMM RESPIRATORY: No respiratory distress, clear to auscultation bilaterally with no rhonchi wheezing or rales CARDIOVASCULAR: RRR s murmur ABDOMINAL: Soft nondistended tender palpation left lower quadrant no tenderness in left upper quadrant, right upper quadrant right lower quadrant no rebound or guarding : No penile lesions no scrotal swelling or erythema the bilateral testicles are nontender to palpation no hernias palpated MUSCULOSKELETAl: Moves all extremities. No clubbing, cyanosis or edema. NEURO: Awake and alert. Following commands, speech normal, no focal deficits SKIN:: Warm, dry. Normal Color PSYCHIATRIC: Normal affect/mood Course Course Emergency Course: Called and discussed with Dr. Ordonez the patient CT scan discussed possibility of mass or cyst versus hematoma at this time no blood in the urine feels hematoma is less likely thinks patient may be discharged with follow-up as an outpatient in the office for more in-depth imaging Patient states pain is improved at this time mild left abdominal pain he describes as muscle strain Patient states that they are feeling much better at this time. States abdominal pain has improved. Repeat abdominal exam shows the patient's abdomen to be soft and nontender. Discussed with patient results of workup and diagnosis. Discussed need for follow-up with primary care physician
[2021-09-29 02:59] LABS: Basophils Absolute Auto 0.1 K/mm3 (0.0-0.1); Basophils Percent Auto 0.4 % (0.2-1.2); Eosinophils Percent Auto 0.2 % (0-4.4); Hematocrit 49.5 % (42.0-52.0); Hemoglobin 17.2 g/dL (14.0-18.0); Immature Granulocyte Absolute 0.05 K/mm3 (0.00-0.031); Immature Granulocyte Percent A 0.4 % (0-0.5); Lymphocytes Percent Auto 11.5 % (18.3-44.2); Mean Corpuscular HGB Conc 34.7 g/dl (32-36); Mean Corpuscular Hemoglobin 29.9 pg (26-34); Mean Corpuscular Volume 85.9 fl (80-100); Mean Platelet Volume 12.4 fl (7.4-10.4); Monocytes Absolute Auto 0.7 K/mm3 (0.1-0.6); Monocytes Percent Auto 5.4 % (2.6-8.5); Neutrophils Absolute Auto 10.7 K/mm3 (1.3-6.7); Neutrophils Percent Auto 82.1 % (45.5-73.1); Platelet Count Result 123 k/mm3 (150-375); Red Blood Count 5.76 M/mm3 (4.6-6.20); Red Cell Distribution Width 12.4 % (11.5-14.5); White Blood Count 13.1 K/mm3 (4.5-10.0)
[2021-09-29 03:18] LABS: Alanine Aminotransferase 23 U/L (6-50); Alkaline Phosphatase 50 U/L (38-126); Anion Gap 11 mmol/L (8-16); Aspartate Amino Transferase 26 U/L (17-59); Bilirubin,Total 1.1 mg/dL (0.2-1.3); Blood Urea Nitrogen 14 mg/dL (9-20); Calcium 9.9 mg/dL (8.4-10.2); Carbon Dioxide 26 mmol/L (22-30); Chloride 100 mmol/L (98-107); Estimated CRCL calculation 91 ml/min; Estimated Glomerular Filt Rate > 60; Glucose 177 mg/dL (65-110); Potassium 3.9 mmol/L (3.4-5.0); Sodium 137 mmol/L (137-145)
[2021-09-29] MEDS: SODIUM CHLORIDE 0.9% IV 1,000 ML 999 ML IV CONT (03:37)
[2021-09-29] MEDS: MORPHINE SULFATE (*CRX) 4 MG/ML INJ IV PUSH (03:37)
[2021-09-29] MEDS: ONDANSETRON INJ 4 MG/2 ML VIAL IV PUSH (03:38)
--- NOTE | 2021-09-29 03:51 | PC.NURSE ---
This RN notified EDP Arlene about high blood pressure.
--- NOTE | 2021-09-29 04:20 | PC.NURSE ---
Patient stated he is going to try urinate shortly. Urinal at bedside
[2021-09-29 04:59] LABS: Appearance Urine Clear (Clear); Bilirubin Urine Negative (Negative); Color Urine Yellow (Yellow); Glucose Urine UA Negative (Negative); Ketones Urine 2+ mg/dL (Negative); Leukocyte Esterase Ur Negative LEU/UL (Negative); Nitrate Urine Negative (Negative); Protein Urine 3+ mg/dL (Negative); Specific Grav Ur 1.025 (1.001-1.035); Urobilinogen Urine 0.2 mg/dL (<2.0)
[2021-09-29 05:03] LABS: Mucus Urine Rare /lpf; WBC Urine 0-3 /hpf
[2021-09-29 05:14] LABS: Add Urine Microscopic? YES; Blood Urine Trace-Intact (Negative)
== END 2021-09-29 07:01 | disposition home or self-care (01) ==
PROVIDERS: Emergency Provider Emergency Medicine; PCP Internal Medicine
DX: R10.32 Left lower quadrant pain (principal); R11.2 Nausea with vomiting, unspecified; E11.9 Type 2 diabetes mellitus without complications; Z86.73 Personal history of transient ischemic attack (TIA), and cerebral infarction without residual deficits; Z79.4 Long term (current) use of insulin; Z79.82 Long term (current) use of aspirin; N28.89 Other specified disorders of kidney and ureter; N20.0 Calculus of kidney
CPT/HCPCS: 36415; 74176; 80053; 81001; 85025; 96361; 96374; 96375; 99284; J2270; J2405; J7030

== ENCOUNTER 2021-10-18 09:41 | Outpatient (CLI) | payer OTHER, SELFPAY ==
--- NOTE | ~2021-10-18 | MR_ITS ---
EXAMINATION: MR abdomen wo/w con INDICATION: Kidney mass TECHNIQUE: Coronal SSFSE ARC, WATER:coronal LAVA-FLEX, Coronal 2D FIESTA FatSat, Axial SSFSE BH ARC, Axial 3D DualEcho BH, Axial SSFSE-IR, Axial DWI b=500, Axial 2D FIESTA FatSat, pre and dynamic postco ntrast Axial LAVA ARC, postcontrast Coronal In and Opposed phase LAVA FLEX COMPARISON: CT, 09/29/2021 CONTRAST: Multihance, 19 cc FINDINGS: The liver, spleen, gallbladder, and adrenal glands are normal. There are three cystic lesio ns in the tail of the pancreas which measure up to 6 mm. There is a 6.2 x 5.3 cm mass at the left kid cal lower pole which demonstrates heterogeneous T1 and T2 signal intensity with areas of hyperintense T1 signal. There is a small fluid component the medial aspect of the mass. No definite enhancement i s present after contrast administration. There is a new adjacent 1.8 cm area of retroperitoneal hemor rhage medial to the left kidney lower pole. There is a 2.3 cm hemorrhagic cyst of the left kidney. Si mple cyst of the right kidney measure up to 8 mm. There are no pathologically enlarged abdominal lymp h nodes. No dilated loops of bowel are evident. There is a small umbilical hernia containing fat. IMPRESSION: 1. Mass of the left kidney lower pole with MRI features suggestive of evolving hematoma. Imaging foll ow-up to resolution is recommended. 2. Cystic lesions in the tail of the pancreas measuring up to 6 mm. The differential diagnosis includ es pseudocyst, intraductal papillary mucinous neoplasm (IPMN), mucinous cystic neoplasm (MCN), and th e less common serous cystadenoma and neuroendocrine tumor. Correlate for history of pancreatitis. Fol low-up pancreas protocol MRI or CT in 12 months is recommended. Reviewed, dictated and finalized at location [facility]. IMPRESSION: 1. Mass of the left kidney lower pole with MRI features suggestive of evolving hematoma. Imaging follow-up to resolution is recommended. 2. Cystic lesions in the tail of the pancreas measuring up to 6 mm. The differe ntial diagnosis includes pseudocyst, intraductal papillary mucinous neoplasm (I PMN), mucinous cystic neoplasm (MCN), and the less common serous cystadenoma an d neuroendocrine tumor. Correlate for history of pancreatitis. Follow-up pancre as protocol MRI or CT in 12 months is recommended.
== END 2021-10-18 09:42 | disposition home or self-care (01) ==
LOC: ANHIMG 09:42
PROVIDERS: PCP Internal Medicine; Visit Provider Urology
DX: N28.89 Other specified disorders of kidney and ureter (principal)
CPT/HCPCS: 74183; A9577

== ENCOUNTER 2021-11-22 11:05 | Outpatient (RCR) | payer OTHER, SELFPAY ==
[2021-11-22 11:11] VITALS: BMI 33.3
[2021-11-22 11:56] VITALS: BMI 33.3
== END 2022-02-05 09:14 | disposition home or self-care (01) ==
LOC: ANHDMC 11:05
PROVIDERS: PCP Internal Medicine; Visit Provider Nurse Practitioner Family
DX: E11.9 Type 2 diabetes mellitus without complications (principal); Z71.3 Dietary counseling and surveillance
CPT/HCPCS: 97802

== ENCOUNTER 2022-01-23 07:55 | Outpatient (CLI) | payer OTHER, SELFPAY ==
--- NOTE | ~2022-01-23 | CT_ITS ---
EXAMINATION: CT abdomen wo/w con DATE: 01/23/2022 09:00 INDICATION: Renal mass lesion follow-up TECHNIQUE: Computed tomography (CT) of the abdomen was performed without and subsequently with 100 CC Omnipaque 350 intravenous contrast. Automated exposure control and iterative reconstruction techniqu e were employed. Exam dose: 1499.53 mGy-cm total exam DLP. COMPARISON: 10/18/2021 MR abdomen 09/29/2021 CT abdomen pelvis FINDINGS: The lung bases are clear of infiltrate or consolidation. Normal heart size. No pericardial or pleural effusion. The liver, gallbladder, bile ducts, spleen, pancreas and adrenal glands are unremarkable. Interval decreased size of a septated hypodense nonenhancing lesion of the lower pole left kidney, cu rrently measuring up to approximately 3.8 x 4.5 cm diameter, with diminished perinephric hematoma, co mpatible with resolving lower pole left renal hematoma. Stable posterior exophytic 2.4 cm hyperdense left renal lesion, consistent with proteinaceous or hemo rrhagic benign cyst, unchanged since 09/29/2021. Up to 8 mm nonobstructing left renal calculus with attenuation of 1361 Hounsfield units. The right kidney is unremarkable except for several small cysts.. Normal caliber and atherosclerotic calcification of the abdominal aorta. No intraperitoneal or retrop eritoneal mass lesion or adenopathy or ascites. Fat-containing hernia in the umbilical area. No suspicious osteolytic or osteoblastic lesions. Degenerative changes of the lower thoracic and lumbar spine; no suspicious osteolytic or osteoblastic lesions. IMPRESSION: Diminished size of lower pole left renal lesion consistent with resolving hematoma; reso lution of perinephric hemorrhage Bilateral renal cysts Up to 8 mm nonobstructing left renal calculus Reviewed, dictated and finalized at [facility]. Reviewed, dictated and finalized at location [facility]. IMPRESSION: Diminished size of lower pole left renal lesion consistent with re solving hematoma; resolution of perinephric hemorrhage Bilateral renal cysts Up to 8 mm nonobstructing left renal calculus
[2022-01-23 08:24] LABS: Estimated Glomerular Filt Rate 58
[2022-01-23 08:36] LABS: Creatinine Urine 150.33 mg/dL (40-278)
[2022-01-23 08:38] LABS: MALB Creatinine Ratio 76.4 mg/g (0-30); Microalbumin Urine Random 114.9 mg/L
[2022-01-23 08:51] LABS: Alanine Aminotransferase 62 U/L (16-63); Albumin Level 3.8 g/dL (3.4-5.0); Alkaline Phosphatase 50 U/L (46-116); Anion Gap 8 mmol/L (8-16); Aspartate Amino Transferase 24 U/L (15-37); Bilirubin,Total 0.7 mg/dL (0.00-1.00); Blood Urea Nitrogen 20 mg/dL (7-18); Calcium 9.2 mg/dL (8.5-10.1); Carbon Dioxide 35 mmol/L (21-32); Chloride 100 mmol/L (98-108); Cholesterol 119 mg/dL (0-200); Free T4 Free Thyroxine 1.05 ng/dL (0.76-1.46); Glucose 146 mg/dL (70-99); HDL Direct 51 mg/dL (40-60); LDL Cholesterol Calculated 41 mg/dL (<130); Osmolality Calculated 301 mOsm/kg (285-295); Potassium 3.2 mmol/L (3.5-5.1); Sodium 143 mmol/L (136-145); Thyroid Stimulating Hormone 1.82 uIU/mL (0.36-3.74); Total Protein 7.1 g/dL (6.4-8.2); Triglycerides 133 mg/dL (0-150); Vitamin B12 974 pg/mL (193-986)
== END 2022-01-23 07:56 | disposition home or self-care (01) ==
LOC: CHSIMG 07:58
PROVIDERS: Nurse Practitioner Family; PCP Internal Medicine; Visit Provider Urology
DX: E78.5 Hyperlipidemia, unspecified (principal); N28.89 Other specified disorders of kidney and ureter; E11.9 Type 2 diabetes mellitus without complications; I10 Essential (primary) hypertension; E66.9 Obesity, unspecified
CPT/HCPCS: 36415; 74170; 80053; 80061; 82043; 82607; 84439; 84443; Q9967